=== PATIENT | male | born 1940 | race Caucasian/White ===

== ENCOUNTER 2020-06-16 07:51 | Day surgery (SDC) | payer OTHER ==
[2020-06-14 13:27] LABS: BASOPHILS % (AUTO) 0.8 % (0.0-5.0); EOSINOPHILS % (AUTO) 2.6 % (0.0-8.0); HEMATOCRIT 44.1 % (42-54); LYMPHOCYTES % (AUTO) 28.9 % (21.0-51.0); MEAN CORPUSCULAR HEMOGLOBIN 29.9 pg (27.0-33.0); MEAN CORPUSCULAR HGB CONC 33.6 g/dL (32.0-36.0); MEAN CORPUSCULAR VOLUME 89.1 fL (79-99); MONOCYTES % (AUTO) 6.3 % (3.0-13.0); NEUTROPHILS % (AUTO) 60.9 % (40.0-77.0); PLATELET COUNT (AUTO) 192 K/uL (130-400); RED BLOOD CELL COUNT(AUTO) 4.95 MIL/uL (4.50-6.20); RED CELL DISTRIBUTION WIDTH 12.7 % (11.0-15.5); WHITE BLOOD COUNT (AUTO) 8.4 K/uL (4.8-10.8)
[2020-06-14 13:40] LABS: CREATININE 1.3 mg/dL (0.5-1.5); INR 0.97 (0.85-1.15); PARTIAL THROMBOPLASTIN TIME 23.9 SEC (26.3-35.5); POTASSIUM 4.7 mmol/L (3.5-5.1); PROTHROMBIN TIME 10.5 SEC (9.6-11.6)
[2020-06-15 09:47] VITALS: BP 135/66
[~2020-06-16] VITALS: Ht 167.6 cm; Wt 78.2 kg
[~2020-06-16 07:51] MED LIST: AEC81 PO; CEFAZOLIN SODIUM 1 GM VIAL IVP SCH; CETI10TA57 PO; CINN500C PO; GLIP5TAB11 PO; LEVO25TA54 PO; LOSA25TA41 PO; METF-444 PO; OMEG-148 PO; PSYL284P7 PO; SENN-107 PO; SERT50TA12 PO; SIMV-46 PO; SODIUM CHLORIDE 0.9% 1000ML 1,000 ML IV ONE
[2020-06-16 08:00] VITALS: BP 144/70
[2020-06-16] MEDS ORDERED: BUPIVACAINE/PF 0.25% 30ML VIAL IJ ONE (09:23)
[2020-06-16] MEDS ORDERED: IOHEXOL-350 50ML VIAL IV ONE (09:23)
[2020-06-16] MEDS ORDERED: LIDOCAINE HCL 1% MDV 50ML VIAL ONE (09:24)
[2020-06-16] MEDS ORDERED: MEPERIDINE-PF 25 MG/ML SYG ONE (11:04)
[2020-06-16] MEDS ORDERED: MIDAZOLAM HCL 1 MG/ML 2ML VIAL ONE ×2 (11:04→12:14)
--- NOTE | 2020-06-16 11:55 | NUR ---
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
[2020-06-16] MEDS ORDERED: CEFAZOLIN SODIUM 1 GM VIAL ONE (12:06)
[2020-06-16] MEDS ORDERED: FENTANYL CITRATE PF 50 MCG/1 ML 2ML VIAL ONE (12:14)
[2020-06-16] MEDS ORDERED: OCTYL 2-CYANOACRYLATE 1 EACH TP ONE ×2 (13:19→13:24)
[2020-06-16 13:50] VITALS: BP 137/70
--- NOTE | 2020-06-16 13:50 | NUR ---
POST RECEIVED PT FROM PACU. S/P LEFT UPPER CHEST DUAL PACEMAKER INSERTION, PRESSURE DRESSING DRESSING DRY AND INTACT, NO BLEEDING OR HEMATOMA TO SITE. VS STABLE ON ARRIVAL . LEFT ARM ON SLING. PT AWAKE AND ALERT IN BED, NO DISTRESS NOTED . PLAN OF CARE DISCUSS WITH PATIENT /FRIEND. CALL LIGHT WITHIN REACH. PTS FRIEND ADRIEN AT BEDSIDE.
[2020-06-16 14:05] VITALS: BP 145/76
--- NOTE | 2020-06-16 14:34 | NUR ---
REPORT REPORT GIVEN TO BECCA ABDI TO [facility]UME [facility] . LEFT UPPER CHEST DRESSING DRY AND INTACT ARM SLING IN PLACE
[2020-06-16 14:35] VITALS: BP 93/49
[2020-06-16 14:50] VITALS: BP 127/73
[2020-06-16 15:20] VITALS: BP 142/68
== END 2020-06-16 16:05 | disposition home or self-care (01) ==
LOC: DAH 07:51
PROVIDERS: ATTEND Internal Medicine Cardiovascular Disease
DX: I44.2 Atrioventricular block, complete (principal); I25.10 Atherosclerotic heart disease of native coronary artery without angina pectoris; I70.0 Atherosclerosis of aorta; I49.1 Atrial premature depolarization; I25.2 Old myocardial infarction; I10 Essential (primary) hypertension; E11.43 Type 2 diabetes mellitus with diabetic autonomic (poly)neuropathy; E11.59 Type 2 diabetes mellitus with other circulatory complications; M47.814 Spondylosis without myelopathy or radiculopathy, thoracic region; Z95.5 Presence of coronary angioplasty implant and graft; Z88.8 Allergy status to other drugs, medicaments and biological substances; Z79.82 Long term (current) use of aspirin; Z79.84 Long term (current) use of oral hypoglycemic drugs; Z79.899 Other long term (current) drug therapy; Z98.890 Other specified postprocedural states; Z79.01 Long term (current) use of anticoagulants
CPT/HCPCS: 33208; 36415; 71045; 80048; 82948 ×3; 85025; 85610; 85730; 93005; C1785; C1894; C1898 ×2; J0690; J2175; J2250 ×2; J3010; J3490 ×2; J7030; Q9967; 99156; 99157

== ENCOUNTER 2024-08-20 06:53 | Day surgery (SDC) | payer OTHER ==
[2024-08-18 13:10] LABS: BASOPHILS # (AUTO) 0.03 K/uL (0.00-0.20); BASOPHILS % (AUTO) 0.4 % (0.0-5.0); EOSINOPHILS % (AUTO) 1.4 % (0.0-8.0); HEMATOCRIT 42.2 % (42-54); IMMATURE GRANULOCYTE ABSOLUTE 0.03 K/uL (0-1); LYMPHOCYTES # (AUTO) 2.2 K/uL (1.0-4.8); LYMPHOCYTES % (AUTO) 29.8 % (21.0-51.0); MEAN CORPUSCULAR HEMOGLOBIN 30.1 pg (27.0-33.0); MEAN CORPUSCULAR HGB CONC 32.7 g/dL (32.0-36.0); MEAN CORPUSCULAR VOLUME 91.9 fL (79-99); MONOCYTES # (AUTO) 0.5 K/uL (0.1-1.0); MONOCYTES % (AUTO) 6.9 % (3.0-13.0); NEUTROPHILS # (AUTO) 4.5 K/uL (1.8-7.7); NEUTROPHILS % (AUTO) 61.1 % (40.0-77.0); PLATELET COUNT (AUTO) 175 K/uL (130-400); RED BLOOD CELL COUNT(AUTO) 4.59 MIL/uL (4.50-6.20); RED CELL DISTRIBUTION WIDTH 13.8 % (11.0-15.5); WHITE BLOOD COUNT (AUTO) 7.4 K/uL (4.8-10.8)
[2024-08-18 13:20] LABS: CREATININE 1.2 mg/dL (0.5-1.3); POTASSIUM 4.2 mmol/L (3.5-5.1)
[2024-08-18 13:38] VITALS: BP 119/60; PULSE 81; RESP 18; TEMP 98.1
--- NOTE | 2024-08-18 13:40 | EKG ---
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
--- NOTE | 2024-08-18 17:47 | NUR ---
report called dr reynaga/catherine nurse to see if pt needs to stop cilostazol and that he took it this morning. received orders for pt to stop now. pt notified to hold cilostazol starting tonight. understanding voiced
[2024-08-20] VITALS (9 sets, daily range): BP systolic 142–174; BP diastolic 64–81; PULSE 68–116; RESP 14–18; TEMP 97.1–97.7
[~2024-08-20] VITALS: Ht 167.6 cm; Wt 66.6 kg
[~2024-08-20 06:53] MED LIST changes: -CEFAZOLIN SODIUM 1 GM VIAL IVP SCH; +FINA5TAB41 PO; -GLIP5TAB11 PO; -LOSA25TA41 PO; -METF-444 PO; -OMEG-148 PO; -PSYL284P7 PO; -SENN-107 PO; +SERT-440 PO; -SERT50TA12 PO; -SODIUM CHLORIDE 0.9% 1000ML 1,000 ML IV ONE; +cilostazol PO; +synjardy PO
[2024-08-20] MEDS ORDERED: acetaMINOPHEN 100 ML ONE (07:08)
[2024-08-20] MEDS ORDERED: FAMOTIDINE 20MG VIAL IV ONE (07:08)
[2024-08-20] MEDS ORDERED: LIDOCAINE PF 100MG/5ML (2%) SYRINGE 5ML ONE (07:10)
[2024-08-20] MEDS ORDERED: proPOFol 10 MG/ML 20ML VIAL IV ONE (07:10)
[2024-08-20] MEDS ORDERED: rocuRONium bROMide 10MG/1ML 5ML VL ONE ×2 (07:11→09:19)
[2024-08-20] MEDS ORDERED: FENTanyl CITRate PF 50 MCG/1 ML 2ML VIAL ONE (07:11)
[2024-08-20] MEDS ORDERED: dexaMETHasone SOD PHOSPHATE 10MG/ML 1ML VIAL ONE (08:27)
[2024-08-20] MEDS ORDERED: ondanSETRON 4MG INJ ONE (08:27)
[2024-08-20] MEDS: cefTRIAXone 1G VIAL ONE (08:31)
[2024-08-20] MEDS: 0.9%NACL 1000ML 1,000 ML IV ONE (08:31)
[2024-08-20] MEDS ORDERED: NEOSTIGMINE METHYLSULFATE 1MG/ML IV ONE (09:24)
[2024-08-20] MEDS ORDERED: GLYCOPYRROLATE 0.2 MG/ML 5 ML VIAL ONE (09:24)
[2024-08-20] MEDS ORDERED: CEPH500B PO (10:23)
[2024-08-20] MEDS ORDERED: TRAM100C3 PO (10:25)
[2024-08-20] MEDS ORDERED: PHEN-846 PO (10:26)
--- NOTE | 2024-08-20 11:16 | NUR ---
AWAITING TRANSPORTATION MASTERS CARE AND MASTERS EMPTYING EDUCATION GIVEN, PT PERFORMED CORRECT EMPTYING TECHNIQUE USING ASEPTIC TECHNIQUE.
--- NOTE | 2024-08-20 12:29 | OP ---
DATE OF PROCEDURE: 08/20/2024 PREOPERATIVE DIAGNOSIS: Obstructive prostatism with lower urinary tract symptoms. POSTOPERATIVE DIAGNOSIS: Obstructive prostatism with lower urinary tract symptoms. PROCEDURE PERFORMED: GreenLight laser vaporization obstructing prostate tissue. ANESTHESIA: General endotracheal anesthesia. SURGEON: Halima Choudhury MD PREOPERATIVE INDICATIONS: This is an 84-year-old gentleman who has had longstanding lower urinary tract symptoms with urgency, frequency, and nocturia. The patient has been on medical therapy and currently is taking finasteride daily. 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 Cystoscopic evaluation in the office revealed an elevated bladder neck with bilobar hypertrophy to his prostate gland with kissing lateral lobes. He presents today for GreenLight laser vaporization obstructing tissue. Preoperatively, his glomerular filtration rate was 60 with a creatinine of 1.2 and his most recent PSA was 3.7. DESCRIPTION OF PROCEDURE: The patient was brought to the operating room and placed in supine position. Following adequate general endotracheal anesthesia, he was sterilely draped and prepped in the usual fashion in the dorsal lithotomy position. RUSTY hose and Venodyne stockings were placed on his lower extremities bilaterally and all pressure points were padded. A 22-Mauritanian cystoscopic sheath with 30-degree angle lens in place was positioned per urethra and negotiated into the bladder. The pendulous urethra was without strictures or foreign bodies. The verumontanum was normal. The patient did have an elevation to his bladder neck and bilateral hypertrophy to his prostatic lobes with kissing lateral lobes. Moving into the bladder, there were no bladder tumors, foreign bodies or stones. He had dense trabeculations and a hypertrophied trigone. Both ureteral orifices were identified along the trigone. Copious irrigation was performed and the patient's urethra was dilated in a sequential fashion using Dawood sounds to 28-Mauritanian. A resectoscope sheath was then easily passed into the bladder and a laser scope was positioned through the resectoscope sheath. A MoXy GreenLight laser fiber was then passed through the lumen of the resectoscope and with initial settings at 80 moise, the patient underwent an incision of the bladder neck at the 5 and 7 o'clock positions. A lobe of tissue was incised and a section of the prostate was removed and sent to pathology for review. Gradual increase of the energy was performed to the highest level of 160 moise. A total of 108,131 joules of energy were delivered over a laser time of 14 minutes and 31 seconds. At the end of the procedure, copious irrigation was performed using Ellik irrigators. Following this, the instruments were removed. An 18-Mauritanian coude tipped Red catheter was inserted. 40 mL were instilled into the balloon. The patient tolerated the procedure well and there were no complications. He will be discharged home today with prescriptions for Keflex 500 mg p.o. b.i.d. He did receive Rocephin 1 gram intravenously prior to commencement of the procedure. He is to follow up in the office on 08/25 for Red catheter removal and a secondary appointment most likely on 09/09 to review his pathology report. TID: [id number] RECEIPT: [id number]
--- NOTE | 2024-08-20 12:32 | NUR ---
PT LEFT DISCHARGE PACKET WITH PRESCRIPTIONS WHEN HE LEFT PREMISES. CALLED PT AND NEIGHBOR HEMA BUT NO ANSWER, CALLED SARIAH AND EXPLAINED THAT PT LEFT RX BEHIND, STATES WILL CALL NEIGHBOR. NEIGHBOR KULWINDER, HEMA'S CALLED BACK AND STATES HER AND HER WILL COME [facility]. EXPLAINED THAT RX AND PAKET WILL BE AVAILABLE FOR [facility] AT [facility] [place]. VERBALIZED UNDERSTANDING.
== END 2024-08-20 11:45 | disposition home or self-care (01) ==
LOC: DAH 06:53
PROVIDERS: ATTEND Urology
DX: N40.1 Benign prostatic hyperplasia with lower urinary tract symptoms (principal); E11.9 Type 2 diabetes mellitus without complications; E03.9 Hypothyroidism, unspecified; Z79.01 Long term (current) use of anticoagulants; Z98.890 Other specified postprocedural states; Z79.899 Other long term (current) drug therapy; Z88.8 Allergy status to other drugs, medicaments and biological substances
CPT/HCPCS: 80048; 85025; 36415; 93005; 52648; 82948 ×2; 88305; A6260; A4663; J7120; A4354; J3490 ×4; J3010; J1100; J7030; J2003; J0696; J2704; J2405; J2710; A4358; A4215; A4213; A4222; A4221; A4216; A4223 ×2